=== PATIENT | male | born 1935 | race Caucasian/White ===

== ENCOUNTER 2018-03-11 10:52 | Emergency (ER) | payer MEDICARE, BC ==
--- NOTE | 2018-03-11 11:28 | UC ---
Abdominal Pain Male HPI - HPI Summary HPI Summary: 82 y/o male presents to the urgent care accompany by son c/o constipation for the past week. Pt reports he has Hx of constipation at times. He took 3 pills of Docusate on Thursday and 3 on Thursday. he developed a mild loose stool, but he feels he has a big large stool that doesn't allow to do a normal BM. Now he has rectal pain. Pain is 4/10. Pt has Hx of abdominal surgeries and bowel obstruction in the past. Rectal pain is 8/10. Pt denies fever, abdominal pain, SOB, chest pain, N/V. - History of Current Complaint Chief Complaint: UCGI Stated Complaint: CONSTIPATED Time Seen by Provider: 03/11/18 11:26 Hx Obtained From: Patient Onset/Duration: Gradual Onset, Lasting Weeks - 1 week, Still Present, Worse Since - today Timing: Intermittent Episodes Lasting: Severity Initially: Mild Severity Currently: Moderate Pain Intensity: 4 - rectal pain Pain Scale Used: 0-10 Numeric Location: Other - rectal pain Radiates: No Character: Colicy Aggravating Factor(s): Food Alleviating Factor(s): Rest Associated Signs And Symptoms: Positive: Constipation, Other - mild watery dirrahea at times - Risk Factors Cardiac Risk Factors: Negative - Allergies/Home Medications Allergies/Adverse Reactions: Allergies Allergy/AdvReac Type Severity Reaction Status Date / Time No Known Allergies Allergy Verified 03/11/18 11:14 Home Medications: Home Medications Levothyroxine TAB* [Synthroid TAB*] 1 tab PO DAILY 03/11/18 [History Confirmed 03/11/18] PMH/Surg Hx/FS Hx/Imm Hx Previously Healthy: Yes Cardiovascular History: Hypertension, Myocardial Infarction, Atrial Fibrillation - Surgical History Surgical History: Yes Surgery Procedure, Year, and Place: Hernia repair x 2 11/2012 [place] quadruple bypass. Bowel surgeries x 3. Cataract removal. Corneal implant. Multiple ear surgeries - Family History Known Family History: Positive: Cardiac Disease, Hypertension - Social History Occupation: Retired Lives: With Family Alcohol Use: Occasionally Substance Use Type: None Smoking Status (MU): Never Smoked Tobacco - Immunization History Most Recent Tetanus Shot: Over 10 years ago Review of Systems Constitutional: Negative Skin: Negative Eyes: Negative ENT: Negative Respiratory: Negative Cardiovascular: Negative Gastrointestinal: Diarrhea - watery at times bur mainly constipation, Other - rectal pain Genitourinary: Negative Motor: Negative Neurovascular: Negative Musculoskeletal: Negative Neurological: Negative Psychological: Negative Is Patient Immunocompromised?: No All Other Systems Reviewed And Are Negative: Yes Physical Exam - Summary Physical Exam Summary: Vital Signs Reviewed: Yes General:Patient is a well developed and nourished obese male who is sitting comfortable in the examining table. Patient is not in any acute respiratory distress. Eyes: Positive: Conjunctiva Clear - PERRLA, EOMI, fundi grossly normal ENT: Positive: Normal ENT inspection, Hearing grossly normal, Pharynx normal, TMs normal Neck: Positive: Supple, Nontender, No Lymphadenopathy Respiratory: Positive: Chest non-tender, Lungs clear, Normal breath sounds, No respiratory distress Cardiovascular: Positive: RRR,S1 and S2 present, No Murmur, Pulses Normal, Brisk Capillary Refill Abdomen Description: Positive: Nontender, Abd: obese with no distention. No surface trauma, multiple abdominal scars,. Decrease bowel sounds in LLQ and normal bowel sound in the rest of abdomen. No tenderness, guarding, rigidity to palpation. No masses palpated, no pulsation in epigastric area. No organomegaly. Negative [place] signs. No periumbilical tenderness. No rebound in the lower quadrants. NT over [place] point. Good femoral pulses bilaterally. No hernia noted. No CVAT bilaterally Musculoskeletal: Positive: Strength Intact, ROM Intact, No Edema,FROM in all major joints, no edema, no cyanosis or clubbing. Neuro: Alert and oriented x 3. No acute neurological deficits. Speech is normal. Psychological: WNL Skin: Dry and warm Triage Information Reviewed: Yes Vital Signs: Initial Vital Signs Temp 100.0 F 03/11/18 11:11 Pulse 77 03/11/18 11:11 Resp 16 03/11/18 11:11 BP 118/58 03/11/18 11:11 Pulse Ox 99 03/11/18 11:11 Abd Pain Male Course/Dx - Course Course Of Treatment: 82 y/o male presents to the urgent care accompany by son c/ o constipation for the past week. Pt reports he has Hx of constipation at times. He took 3 pills of Docusate on Thursday and 3 on Thursday. he developed a mild loose stool, but he feels he has a big large stool that doesn't allow to do a normal BM. Now he has rectal pain. Pain is 4/10. Pt has Hx of abdominal surgeries and bowel obstruction in the past. Rectal pain is 8/10. Pt denies fever, abdominal pain, SOB, chest pain, N/V. Hx obtained. PE: Pt w/ decrease bowel sounds in the LLQ on examination. Pt's symptoms discussed w/ DR Rhoades and she recommended Abdominal and pelvic X-ray to r/o obstruction. Abd/Pelvic X-ray , Impression: Non obstructive gas pattern and large amount of stool w/in the distal colon. Pt has a small hard and watery BM while in X-ray. Pt Rx Magnesium Citrate PO and Docusate to alleviates symptoms. While Pt was being D/ C Pt was able to perform a good BM. Pt advised to f/u w/ his PCP for further evalaution and treatment of his constipation. D/C instructions explained. Pt and son understood and agreed w/ plan of care. Pt left the clinic hemodynamically stable, A&OX3. - Differential Dx/Clinical Impression Differential Diagnosis/HQI/PQRI: Bowel Obstruction, Constipation, Diverticulitis Provider Diagnoses: 1- Acute Constipation - Physician Notification/Consults Discussed Patient Care With: Mook Rhoades - DR Rhoades agreed w/ Pt's plan of care Discharge - Sign-Out/Discharge Documenting (check all that apply): Discharge/Admit/Transfer - D/C home - Discharge Plan Condition: Stable Disposition: HOME Prescriptions: Docusate CAP* [Colace Cap*] 100 mg PO BID #28 cap Magnesium CITRATE* [Citrate of Magnesia*] 300 ml PO SEE INSTRUCTIONS PRN #1 btl PRN Reason: Constipation Patient Education Materials: Constipation (ED) Referrals: Diogo Main MD [Primary Care Provider] - 2 Days Additional Instructions: 1- Please take Magnesiums citrate as directed full bottle. 2- Take Colace as directed to normalize bowel moments. Increase fluid intake, eat vegetable and fiber 3- If you do not get a bowel movement in 1 day and develop severe rectal pain please go immediately to the ER for further treatment. - Billing Disposition and Condition Condition: STABLE Disposition: HOME
[2018-03-11 12:09] VITALS: BP 118/58
--- NOTE | 2018-03-11 12:35 | RAD ---
HISTORY: Constipation rule out obstruction COMPARISONS: None VIEWS: Frontal supine and upright views of the abdomen. FINDINGS: BOWEL: There is a nonobstructive bowel gas pattern. There is large amount of stool within the distal colon. CALCULI: There are no abnormal calculi. BONES AND SOFT TISSUES: Degenerative changes are noted. The patient is status post median sternotomy. OTHER FINDINGS: The lung bases are clear. There is no subphrenic gas. IMPRESSION: NONOBSTRUCTIVE BOWEL GAS PATTERN. LARGE AMOUNT OF STOOL WITHIN THE DISTAL COLON.
== END 2018-03-11 13:32 | disposition home or self-care (01) ==
LOC: UCEAST 10:52
DX: K59.00 Constipation, unspecified (principal); I10 Essential (primary) hypertension; I25.2 Old myocardial infarction; Z98.890 Other specified postprocedural states
CPT/HCPCS: 74019; 99212; G0463

== ENCOUNTER 2019-11-16 13:20 | Emergency (ER) | payer MEDICARE, BC ==
--- OUTSIDE RECORDS SUMMARY | 2019-11-16 13:30 | XMS REPORT | Continuity of Care Document ---
:1935 External Reference #:[id number] Author Name Danica Dhaliwal O.D. Address [address] [place] [address] Care Team Providers Name Role Phone Diogo Main M.D. - Family Medicine Care Team Information Gyroscopic Instrument Tester Baron Cortes M.D. 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 Onset: 11/18/2016 Nuclear senile cataract Bahman Amaya M.D. Onset: 11/18/2016 Central retinal vein occlusion Bahman Amaya M.D. Onset: 11/18/2016 Presence of intraocular lens Bahman Amaya M.D. Onset: 11/18/2016 Myopia Danica Dhaliwal O.D. Onset: 09/27/2019 Social History Type Date Description Comments Sex Unknown ETOH Use Occasionally consumes beer Tobacco Use Start: Unknown End: Unknown Patient is a former smoker Recreational Drug Use Denies Drug Use Smoking Status Reviewed: 09/27/19 Patient is a former smoker Allergies, Adverse Reactions, Alerts Description No Known Drug Allergies Medications Active Medications SIG Qnty Indications Ordering Provider Date Amiodarone HCL Take 1/2 Tablet By Unknown 200mg Mouth Every Day Tablets Levothyroxine Sodium Take 1 Tablet By Unknown Mouth Daily Before 75mcg Tablets Breakfast Metoprolol Tartrate Take 1 Tablet By Unknown 50mg Mouth Twice A Day Tablets Minoxidil Take 1 Tablet By Unknown 10mg Tablets Mouth Twice A Day Torsemide Take 2 Tabs By Unknown 100mg Tablets Mouth Daily. Klor-Con M20 Take 3 Tablets By Unknown 20Meq Mouth Daily Tablets ER Folic Acid Unknown 1mg Tablets Aspir-81 daily Unknown 81mg Tablets DR Atorvastatin Calcium Unknown 40mg Tablets Centrum Silver Unknown Tablets Artificial Tears as needed Unknown 0.1-0.3% Solution Immunizations Description No Information Available Vital Signs Description No Information Available Results Description No Information Available Procedures Date Code Description Status 09/12/2019 35732 Visual Field Exam Extended Completed 09/05/2019 19582 Determination Of Refractive State Completed 09/05/2019 96198 Est Patient Comprehensive Exam Completed Medical Devices Description No Information Available Encounters Description No Information Available Assessments Date Code Description Provider 09/27/2019 H52.11 Myopia, right eye Danica Dhaliwal O.D. 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 09/12/2019 H53.40 Unspecified visual field defects Bahman Amaya M.D. 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 09/05/2019 Z96.1 Presence of intraocular lens Bahman Amaya M.D. 09/05/2019 H25.12 Age-related nuclear cataract, left eye Bahman Amaya M.D. 09/05/2019 H34.8122 Central retinal vein occlusion, left eye, Bahman Amaya M.D. stable Plan of Treatment 09/27/2019 - Danica Dhaliwal O.D.H52.11 Myopia, right eyeComments:Smoking can increase the risk of developing or worsening any eye related disease, as well as affect your overall health. If you are a smoker, we strongly recommend that you quit.If you are not a smoker, we strongly recommend that you do not start. You have Myopia, or near sightedness. I have given you a prescription for glasses.S04.51xS Injury of facial nerve, right side, sequelaFollow up:as scheduled Functional Status Description No Information Available Mental Status Description No Information Available Referrals Description No Information Available
[2019-11-16 14:52] VITALS: BP 134/55
--- NOTE | 2019-11-16 16:36 | UC ---
Back Pain HPI - HPI Summary HPI Summary: 3 WEEKS OF INTERMITTENT LOW BACK PAIN AND PAIN SHOOTING DOWN THE BACK OF HIS LEFT LEG. WORSE WHEN HE WALKS OR SITS FOR PROLONGED PERIOD OF TIME. NO CHEST PAIN, SHORTNESS OF BREATH, NAUSEA. DENIES ANY FALLS OR RECENT INJURY. NO SADDLE ANESTHESIA. NO NUMBNESS/TINGLING. NO LOSS OF BOWEL OR BLADDER CONTROL. - History of Current Complaint Chief Complaint: UCLowerExtremity Stated Complaint: LEFT SIDE & LEG PAIN Time Seen by Provider: 11/16/19 15:38 Hx Obtained From: Patient Onset/Duration: Gradual Onset, Lasting Weeks, Still Present Severity Initially: Moderate Severity Currently: Moderate Pain Intensity: 10 Pain Scale Used: 0-10 Numeric Back Pain: Is Discrete @ - LEFT LEG Alleviating Factor(s): Rest, Position - Allergies/Home Medications Allergies/Adverse Reactions: Allergies Allergy/AdvReac Type Severity Reaction Status Date / Time No Known Allergies Allergy Verified 11/16/19 14:51 Home Medications: Home Medications Acetaminophen [8 Hour Acetaminophen] 1 tab PO Q4HR PRN 11/16/19 [History Confirmed 11/16/19] Aspirin 1 tab PO DAILY 11/16/19 [History Confirmed 11/16/19] Potassium Gluconate [Potassium] 1 tab PO DAILY 11/16/19 [History Confirmed 11/16] Spironolactone 1 tab PO DAILY 11/16/19 [History Confirmed 11/16/19] PMH/Surg Hx/FS Hx/Imm Hx Endocrine History: Hypothyroidism, Dyslipidemia Cardiovascular History: Cardiac Disease, Hypertension - Surgical History Surgical History: Yes Surgery Procedure, Year, and Place: Hernia repair x 2 11/2012 [place] quadruple bypass. Bowel surgeries x 3. Cataract removal. Corneal implant. Multiple ear surgeries - Family History Known Family History: Positive: Cardiac Disease, Hypertension - Social History Alcohol Use: None Substance Use Type: None Smoking Status (MU): Never Smoked Tobacco - Immunization History Most Recent Tetanus Shot: Over 10 years ago Review of Systems All Other Systems Reviewed And Are Negative: Yes Constitutional: Positive: Negative Skin: Positive: Negative Respiratory: Positive: Negative Cardiovascular: Positive: Negative Gastrointestinal: Positive: Negative Neurological: Positive: Paresthesia Physical Exam Triage Information Reviewed: Yes Appearance: No Pain Distress, Well-Nourished, Other: - DEBILITATED Vital Signs: Initial Vital Signs Temp 99.4 F 11/16/19 14:38 Pulse 63 11/16/19 14:38 Resp 18 11/16/19 14:38 BP 134/55 11/16/19 14:38 Pulse Ox 96 11/16/19 14:38 Vital Signs Reviewed: Yes Eyes: Negative: Discharge ENT: Positive: Hearing grossly normal Neck: Positive: Supple Respiratory: Positive: No respiratory distress, No accessory muscle use Cardiovascular: Positive: Pulses Normal Musculoskeletal: Positive: No Edema Neurological: Positive: Alert, Other: - POSITIVE LEFT STRAIGHT LEG RAISE Psychological: Positive: Age Appropriate Behavior Skin: Negative: Rashes Back Pain Course/Dx - Course Course Of Treatment: PRESENTATION CONSISTENT WITH LEFT-SIDED SCIATICA. ENCOURAGED NOT TO SIT ON ANY HARD SURFACES. WILL TRY SHORT BURST OF PREDNISONE. TYLENOL NEEDED FOR DISCOMFORT. PATIENT STATES HE CANNOT TOLERATE NSAIDS DUE TO HIS BLOOD PRESSURE. PHYSICAL THERAPY REFERRAL PROVIDED FOR PATIENT TO USE IF DESIRED. - Differential Dx/Diagnosis Provider Diagnosis: Left sciatic nerve pain Discharge ED - Sign-Out/Discharge Documenting (check all that apply): Patient Departure All imaging exams completed and their final reports reviewed: No Studies - Discharge Plan Condition: Stable Disposition: HOME Prescriptions: predniSONE 20 mg TAB [Deltasone 20 MG TAB*] 40 mg PO DAILY #10 tab Patient Education Materials: Sciatica (ED) Referrals: Diogo Main MD [Primary Care Provider] - 1 Week Additional Instructions: I SUSPECT YOU HAVE IRRITATION OF YOUR SCIATIC NERVE. WILL TRY A SHORT BURST OF PREDNISONE TO HELP WITH THE INFLAMMATION. TAKE TYLENOL EVERY 6 HOURS FOR DISCOMFORT. REST, STRETCH, USE HEAT IF HELPFUL. PHYSICAL THERAPY REFERRAL PROVIDED. GO TO THE ER WITHOUT FAIL IF YOU DEVELOP WORSENING PAIN, NUMBNESS/ TINGLING OR ANY OTHER CONCERNING SYMPTOMS. - Billing Disposition and Condition Condition: STABLE Disposition: Home
== END 2019-11-16 16:34 | disposition home or self-care (01) ==
LOC: UCEAST 13:20
DX: M54.32 Sciatica, left side (principal); I10 Essential (primary) hypertension; Z79.82 Long term (current) use of aspirin; Z79.899 Other long term (current) drug therapy
CPT/HCPCS: 99211; G0463

== ENCOUNTER 2020-12-23 15:49 | Inpatient (IN) ==
[2020-12-23 17:06] LABS: ABS Eosinophils 0.1 10^3/ul (0-0.6); ABS Lymphocytes 0.5 10^3/ul (1.0-4.8); Eosinophil % 1.3 %; Hematocrit 39 % (42-52); Hemoglobin 12.7 g/dL (14.0-18.0); Lymphocyte % 6.8 %; Mean Corpuscular HGB Conc 33 g/dL (31-36); Mean Corpuscular Hemoglobin 29 pg (27-31); Mean Corpuscular Volume 87 fL (80-94); Mean Platelet Volume 7.9 fL (7.4-10.4); Nucleated Red Blood Cells % 0.1; Platelet Count 244 10^3/uL (150-450); Red Blood Count 4.45 10^6 /uL (4.18-5.48); Red Cell Distribution Width 18 % (10-15); White Blood Count 7.6 10^3/uL (3.5-10.8)
[2020-12-23 17:12] LABS: Urine Appearance Clear; Urine Bilirubin Negative (Negative); Urine Blood Negative (Negative); Urine Color Straw; Urine Glucose Negative (Negative); Urine Ketones Negative (Negative); Urine Nitrite Negative (Negative); Urine Protein Negative (Negative); Urine Specific Gravity 1.005 (1.010-1.030); Urine Urobilinogen Negative (Negative)
[2020-12-23 17:16] LABS: Activated Partial Thrombo Time 37.5 seconds (26.0-38.0); INR 1.29 (0.82-1.09)
[2020-12-23 17:23] LABS: ALT 13 U/L (7-52); AST 12 U/L (13-39); Albumin 4.1 g/dL (3.2-5.2); Albumin/Globulin Ratio 1.4 (1-3); Alkaline Phosphatase 96 U/L (34-104); Anion Gap 8 mmol/L (2-11); BUN/Creatinine Ratio 10.5 (8-20); Blood Urea Nitrogen 18 mg/dL (6-24); C Reactive Protein 33.26 mg/L (<8.01); CO2 Carbon Dioxide 30 mmol/L (22-32); Calcium 9.1 mg/dL (8.6-10.3); Chloride 102 mmol/L (101-111); Creatine Kinase 40 U/L (10-223); EGFR African American 46.3 (>60); EGFR Non-African American 38.2 (>60); Glucose 84 mg/dL (70-100); Potassium 4.7 mmol/L (3.5-5.0); Sodium 140 mmol/L (135-145); Total Protein 7.1 g/dL (6.4-8.9)
[2020-12-23 17:27] LABS: CKMB ng/mL 1.4 ng/mL (0.6-6.3)
[2020-12-23 17:28] LABS: Troponin I 0.03 ng/mL (<0.03)
[2020-12-23] MEDS ORDERED: Ondansetron 4 mg VIAL 2 MG/ML 2 ml VIAL IV PRN (20:10)
[2020-12-23] MEDS ORDERED: Bumetanide IV 0.25 MG/ML 4 ml VIAL (1 mg) SLOW PUSH ONE (20:14)
[2020-12-23] MEDS ORDERED: Albuterol/Ipratropium RESP(NF) MDI (Combivent Respimat) INH PRN (20:16)
[2020-12-23 20:58] LABS: Magnesium 2.3 mg/dL (1.9-2.7)
[2020-12-23 21:06] LABS: Troponin I 0.04 ng/mL (<0.03)
[2020-12-23] MEDS: Potassium Chlor 20 meq TAB.ER PO SCH (23:20)
[2020-12-23 23:56] LABS: Troponin I 0.04 ng/mL (<0.03)
[2020-12-24] MEDS: Albuterol HFA INHALER 8 gm MDI INH SCH ×6 (00:21→19:24)
[2020-12-24] MEDS: Carboxymethylcellulose/Glyceri 10 ML OPHTH.GEL lubricant eye gel BOTH EYES SCH ×3 (00:43→21:34)
[2020-12-24 08:37] LABS: ABS Eosinophils 0.1 10^3/ul (0-0.6); ABS Lymphocytes 0.5 10^3/ul (1.0-4.8); ABS Monocytes 0.8 10^3/ul (0-0.8); Eosinophil % 1.3 %; Hematocrit 35 % (42-52); Hemoglobin 11.7 g/dL (14.0-18.0); Lymphocyte % 7.6 %; Mean Corpuscular HGB Conc 33 g/dL (31-36); Mean Corpuscular Hemoglobin 29 pg (27-31); Mean Corpuscular Volume 87 fL (80-94); Mean Platelet Volume 7.8 fL (7.4-10.4); Platelet Count 220 10^3/uL (150-450); Red Blood Count 4.04 10^6 /uL (4.18-5.48); Red Cell Distribution Width 18 % (10-15); White Blood Count 6.4 10^3/uL (3.5-10.8)
[2020-12-24] MEDS: Multivitamins/Minerals TAB PO SCH (08:47)
[2020-12-24] MEDS: Potassium Chlor 20 meq TAB.ER PO SCH ×2 (08:47→21:32)
[2020-12-24 08:52] LABS: Albumin 3.8 g/dL (3.2-5.2); Albumin/Globulin Ratio 1.5 (1-3); BUN/Creatinine Ratio 12.2 (8-20); Calcium 8.6 mg/dL (8.6-10.3); EGFR African American 43.6 (>60); Globulin 2.6 g/dL (2-4); Indirect Bilirubin 1.3 mg/dL (0.3-1.0); Potassium 4.7 mmol/L (3.5-5.0); Total Bilirubin 1.7 mg/dL (0.2-1.0); Total Protein 6.4 g/dL (6.4-8.9)
[2020-12-24] MEDS ORDERED: Influenza VAC *QUAD* 2020-21* 0.5 ML SYRINGE IM ONE (09:00)
[2020-12-24] MEDS: CMC:OMEGA-3 FATTY ACID 1000 mg(NF) PO SCH (09:03)
[2020-12-24] MEDS ORDERED: Bumetanide IV 0.25 MG/ML 4 ml VIAL (1 mg) SLOW PUSH ONE ×3 (10:00→16:00)
[2020-12-24 10:20] LABS: Influenza A Molecular Negative (Negative); Influenza B Molecular Negative (Negative)
[2020-12-24 20:17] LABS: Magnesium 2.1 mg/dL (1.9-2.7)
[2020-12-25] MEDS: Albuterol HFA INHALER 8 gm MDI INH SCH ×7 (02:53→22:39)
[2020-12-25 05:57] LABS: ABS Eosinophils 0.1 10^3/ul (0-0.6); ABS Lymphocytes 0.5 10^3/ul (1.0-4.8); ABS Monocytes 0.7 10^3/ul (0-0.8); ABS Neutrophils 4.9 10^3/ul (1.5-7.7); Eosinophil % 1.4 %; Hematocrit 36 % (42-52); Lymphocyte % 7.7 %; Mean Corpuscular HGB Conc 33 g/dL (31-36); Mean Corpuscular Hemoglobin 29 pg (27-31); Mean Corpuscular Volume 86 fL (80-94); Mean Platelet Volume 7.8 fL (7.4-10.4); Nucleated Red Blood Cells % 0.1; Platelet Count 205 10^3/uL (150-450); Red Blood Count 4.18 10^6 /uL (4.18-5.48); Red Cell Distribution Width 18 % (10-15); White Blood Count 6.1 10^3/uL (3.5-10.8)
[2020-12-25 06:20] LABS: BUN/Creatinine Ratio 15.6 (8-20); Calcium 8.6 mg/dL (8.6-10.3); EGFR African American 40.5 (>60); EGFR Non-African American 33.5 (>60); Potassium 4.8 mmol/L (3.5-5.0)
[2020-12-25] MEDS ORDERED: Bumetanide IV 0.25 MG/ML 4 ml VIAL (1 mg) SLOW PUSH PRN (08:35)
[2020-12-25] MEDS: Potassium Chlor 20 meq TAB.ER PO SCH ×2 (08:54→20:54)
[2020-12-25] MEDS: Multivitamins/Minerals TAB PO SCH (08:55)
[2020-12-25] MEDS: Carboxymethylcellulose/Glyceri 10 ML OPHTH.GEL lubricant eye gel BOTH EYES SCH ×2 (09:00→20:55)
[2020-12-25] MEDS: CMC:OMEGA-3 FATTY ACID 1000 mg(NF) PO SCH (09:00)
[2020-12-25] MEDS ORDERED: Bumetanide IV 0.25 MG/ML 4 ml VIAL (1 mg) SLOW PUSH ONE (15:32)
[2020-12-25] MEDS: Bumetanide IV 0.25 MG/ML 4 ml VIAL (1 mg) SLOW PUSH ONE ×2 (16:16→16:26)
[2020-12-25] MEDS ORDERED: Dextran 70/Hypromellose Tears Eye Drops 15 ml BTL (for Artificials Tears) BOTH EYES PRN (16:18)
[2020-12-26] MEDS: Albuterol HFA INHALER 8 gm MDI INH SCH ×6 (03:04→23:18)
[2020-12-26 05:18] LABS: BUN/Creatinine Ratio 17.5 (8-20); Calcium 8.5 mg/dL (8.6-10.3); EGFR Non-African American 33.1 (>60); Magnesium 2.1 mg/dL (1.9-2.7); Potassium 4.9 mmol/L (3.5-5.0)
[2020-12-26] MEDS: Multivitamins/Minerals TAB PO SCH (08:39)
[2020-12-26] MEDS: CMC:OMEGA-3 FATTY ACID 1000 mg(NF) PO SCH (08:40)
[2020-12-26] MEDS: Potassium Chlor 20 meq TAB.ER PO SCH ×2 (08:40→20:34)
[2020-12-26] MEDS: Carboxymethylcellulose/Glyceri 10 ML OPHTH.GEL lubricant eye gel BOTH EYES SCH ×2 (08:46→20:34)
[2020-12-26] MEDS ORDERED: Bumetanide IV 0.25 MG/ML 4 ml VIAL (1 mg) SLOW PUSH ONE (09:00)
[2020-12-26 09:56] LABS: TSH Ultra Thyroid Stim Horm 1.95 mcIU/mL (0.34-5.60)
[2020-12-26 09:58] LABS: Free T4 1.41 ng/dL (0.61-1.12)
[2020-12-26] MEDS ORDERED: Bumetanide IV 0.25 MG/ML 10 ml VIAL (2.5 mg) IV ONE (12:00)
[2020-12-26 18:05] LABS: BUN/Creatinine Ratio 19.5 (8-20); Calcium 8.7 mg/dL (8.6-10.3); EGFR African American 42.3 (>60); EGFR Non-African American 34.9 (>60); Potassium 4.5 mmol/L (3.5-5.0)
[2020-12-27] MEDS: Albuterol HFA INHALER 8 gm MDI INH SCH ×6 (03:02→23:14)
[2020-12-27 06:09] LABS: ABS Eosinophils 0.2 10^3/ul (0-0.6); ABS Lymphocytes 0.5 10^3/ul (1.0-4.8); ABS Monocytes 0.7 10^3/ul (0-0.8); ABS Neutrophils 4.7 10^3/ul (1.5-7.7); Hematocrit 35 % (42-52); Hemoglobin 11.7 g/dL (14.0-18.0); Lymphocyte % 7.5 %; Mean Corpuscular HGB Conc 34 g/dL (31-36); Mean Corpuscular Hemoglobin 29 pg (27-31); Mean Corpuscular Volume 85 fL (80-94); Mean Platelet Volume 7.9 fL (7.4-10.4); Nucleated Red Blood Cells % 0.1; Platelet Count 213 10^3/uL (150-450); Red Blood Count 4.08 10^6 /uL (4.18-5.48); Red Cell Distribution Width 17 % (10-15)
[2020-12-27 06:29] LABS: BUN/Creatinine Ratio 19.3 (8-20); Calcium 8.5 mg/dL (8.6-10.3); EGFR African American 40.5 (>60); EGFR Non-African American 33.5 (>60); Magnesium 2.2 mg/dL (1.9-2.7); Potassium 4.5 mmol/L (3.5-5.0)
[2020-12-27] MEDS: Potassium Chlor 20 meq TAB.ER PO SCH ×2 (09:19→20:10)
[2020-12-27] MEDS: Multivitamins/Minerals TAB PO SCH (09:19)
[2020-12-27] MEDS: Carboxymethylcellulose/Glyceri 10 ML OPHTH.GEL lubricant eye gel BOTH EYES SCH ×2 (09:20→20:09)
[2020-12-27] MEDS: CMC:OMEGA-3 FATTY ACID 1000 mg(NF) PO SCH (09:20)
[2020-12-28] MEDS: Albuterol HFA INHALER 8 gm MDI INH SCH ×2 (03:22→07:36)
[2020-12-28] MEDS ORDERED: Albuterol HFA INHALER 8 gm MDI INH PRN (07:42)
[2020-12-28 08:32] LABS: BUN/Creatinine Ratio 22.9 (8-20); Calcium 9.2 mg/dL (8.6-10.3); EGFR African American 40.5 (>60); EGFR Non-African American 33.5 (>60); Potassium 4.4 mmol/L (3.5-5.0)
[2020-12-28] MEDS: Potassium Chlor 20 meq TAB.ER PO SCH (09:03)
[2020-12-28] MEDS: Multivitamins/Minerals TAB PO SCH (09:03)
[2020-12-28] MEDS: Carboxymethylcellulose/Glyceri 10 ML OPHTH.GEL lubricant eye gel BOTH EYES SCH (09:04)
[2020-12-28] MEDS: CMC:OMEGA-3 FATTY ACID 1000 mg(NF) PO SCH (09:09)
[2020-12-28 16:02] VITALS: BP 123/52
== END 2020-12-28 16:40 | disposition home or self-care (01) | DRG 291 ==
LOC: ED 15:49 → MED 20:11
PROVIDERS: ADMIT Student in an Organized Health Care Education/Training Program; ATTEND Internal Medicine

== ENCOUNTER 2021-03-05 10:44 | Inpatient (IN) ==
[2021-03-05 11:15] LABS: Hematocrit 28 % (42-52); Mean Corpuscular HGB Conc 33 g/dL (31-36); Mean Corpuscular Hemoglobin 29 pg (27-31); Mean Corpuscular Volume 88 fL (80-94); Mean Platelet Volume 8.2 fL (7.4-10.4); Platelet Count 203 10^3/uL (150-450); Red Blood Count 3.16 10^6 /uL (4.18-5.48); Red Cell Distribution Width 20 % (10-15); White Blood Count 6.5 10^3/uL (3.5-10.8)
[2021-03-05 11:22] LABS: INR 1.21 (0.82-1.09)
[2021-03-05 11:32] LABS: Troponin I 0.08 ng/mL (<0.03)
[2021-03-05] MEDS ORDERED: Furosemide 40 mg/4 ml IV VIAL IV ONE ×2 (11:33→17:08)
[2021-03-05 11:43] LABS: ALT 13 U/L (7-52); AST 16 U/L (13-39); Albumin 3.5 g/dL (3.2-5.2); Albumin/Globulin Ratio 1.3 (1-3); Alkaline Phosphatase 92 U/L (34-104); Anion Gap 3 mmol/L (2-11); Blood Urea Nitrogen 32 mg/dL (6-24); C Reactive Protein 18.34 mg/L (<8.01); CO2 Carbon Dioxide 38 mmol/L (22-32); Chloride 96 mmol/L (101-111); EGFR African American 42.8 (>60); EGFR Non-African American 35.4 (>60); Globulin 2.6 g/dL (2-4); Glucose 143 mg/dL (70-100); Magnesium 2.4 mg/dL (1.9-2.7); Potassium 3.2 mmol/L (3.5-5.0); Sodium 137 mmol/L (135-145); Total Protein 6.1 g/dL (6.4-8.9)
[2021-03-05 11:58] LABS: TSH Ultra Thyroid Stim Horm 4.99 mcIU/mL (0.34-5.60)
[2021-03-05] MEDS ORDERED: KCL 20 MEQ/100 ML IVPREMIX 20 MEQ/100 ML BAG IV ONE (12:19)
[2021-03-05 12:41] LABS: ABS Eosinophils 0.1 10^3/ul (0-0.6); ABS Lymphocytes 0.4 10^3/ul (1.0-4.8); ABS Monocytes 0.8 10^3/ul (0-0.8); ABS Neutrophils 5.1 10^3/ul (1.5-7.7); Eosinophil % 1.7 %; Lymphocyte % 6.8 %; Nucleated Red Blood Cells % 0.3
[2021-03-05 13:28] LABS: Phosphorus 3.5 mg/dL (2.5-5.0)
[2021-03-05] MEDS: KCL 20 MEQ/100 ML IVPREMIX 20 MEQ/100 ML BAG IV SCH ×2 (17:32→22:32)
[2021-03-05 17:40] LABS: % Iron Saturation 8 % (15-55); Iron 23 ug/dL (50-212); Total Iron Binding Capacity 305 mcg/dL (250-450); Transferrin 218 mg/dL (203-362); Unsaturated Iron Binding < 290 ug/dL
[2021-03-05 21:06] LABS: Urine Appearance Clear; Urine Bilirubin Negative (Negative); Urine Blood Negative (Negative); Urine Color Straw; Urine Glucose Negative (Negative); Urine Ketones Negative (Negative); Urine Nitrite Negative (Negative); Urine Protein Negative (Negative); Urine Specific Gravity 1.006 (1.002-1.030); Urine Urobilinogen Negative (Negative)
[2021-03-06 06:10] LABS: ABS Eosinophils 0.1 10^3/ul (0-0.6); ABS Lymphocytes 0.5 10^3/ul (1.0-4.8); ABS Monocytes 0.5 10^3/ul (0-0.8); ABS Neutrophils 4.1 10^3/ul (1.5-7.7); Hematocrit 29 % (42-52); Hemoglobin 9.2 g/dL (14.0-18.0); Lymphocyte % 10.3 %; Mean Corpuscular HGB Conc 32 g/dL (31-36); Mean Corpuscular Hemoglobin 28 pg (27-31); Mean Corpuscular Volume 87 fL (80-94); Nucleated Red Blood Cells % 0.2; Platelet Count 211 10^3/uL (150-450); Red Blood Count 3.28 10^6 /uL (4.18-5.48); Red Cell Distribution Width 20 % (10-15); White Blood Count 5.3 10^3/uL (3.5-10.8)
[2021-03-06 06:26] LABS: ALT 12 U/L (7-52); AST 13 U/L (13-39); Albumin 3.6 g/dL (3.2-5.2); Albumin/Globulin Ratio 1.4 (1-3); Alkaline Phosphatase 94 U/L (34-104); Anion Gap 1 mmol/L (2-11); Blood Urea Nitrogen 30 mg/dL (6-24); CO2 Carbon Dioxide 39 mmol/L (22-32); Calcium 8.3 mg/dL (8.6-10.3); Chloride 98 mmol/L (101-111); EGFR African American 47.5 (>60); EGFR Non-African American 39.3 (>60); Globulin 2.6 g/dL (2-4); Glucose 98 mg/dL (70-100); Magnesium 2.3 mg/dL (1.9-2.7); Phosphorus 4.2 mg/dL (2.5-5.0); Potassium 3.4 mmol/L (3.5-5.0); Sodium 138 mmol/L (135-145); Total Protein 6.2 g/dL (6.4-8.9)
[2021-03-06] MEDS ORDERED: KCL 20 MEQ/100 ML IVPREMIX 20 MEQ/100 ML BAG IV ONE ×2 (06:35→07:57)
[2021-03-06 07:13] LABS: Influenza A Molecular Negative (Negative); Influenza B Molecular Negative (Negative)
[2021-03-06] MEDS ORDERED: Furosemide 40 mg/4 ml IV VIAL IV ONE (09:02)
[2021-03-06] MEDS ORDERED: Dextran 70/Hypromellose Tears Eye Drops 15 ml BTL (for Artificials Tears) BOTH EYES PRN (09:27)
[2021-03-06] MEDS ORDERED: Tetracaine 0.5% OPTH.SOL 4 ML BTL BOTH EYES SCH (09:30)
[2021-03-06] MEDS: Multivitamins/Minerals TAB PO SCH (10:10)
[2021-03-06] MEDS: Ciprofloxacin 0.3% OPTH.SOL BTL BOTH EYES SCH ×3 (11:55→20:57)
[2021-03-06 16:00] LABS: Troponin I 0.07 ng/mL (<0.03)
[2021-03-06] MEDS: Bumetanide IV 0.25 MG/ML 4 ml VIAL (1 mg) SLOW PUSH SCH (20:58)
[2021-03-07 04:50] LABS: Hematocrit 27 % (42-52); Hemoglobin 8.9 g/dL (14.0-18.0); Mean Corpuscular HGB Conc 32 g/dL (31-36); Mean Corpuscular Hemoglobin 28 pg (27-31); Mean Corpuscular Volume 88 fL (80-94); Mean Platelet Volume 8.5 fL (7.4-10.4); Platelet Count 206 10^3/uL (150-450); Red Blood Count 3.13 10^6 /uL (4.18-5.48); Red Cell Distribution Width 20 % (10-15); White Blood Count 6.4 10^3/uL (3.5-10.8)
[2021-03-07 05:12] LABS: Calcium 8.3 mg/dL (8.6-10.3); EGFR African American 52.2 (>60); EGFR Non-African American 43.1 (>60); Magnesium 2.2 mg/dL (1.9-2.7); Phosphorus 3.8 mg/dL (2.5-5.0); Potassium 3.3 mmol/L (3.5-5.0)
[2021-03-07] MEDS ORDERED: Senna TAB 8.6 mg TAB PO PRN (08:00)
[2021-03-07] MEDS ORDERED: Bumetanide IV 0.25 MG/ML 4 ml VIAL (1 mg) SLOW PUSH SCH (09:00)
[2021-03-07] MEDS: Ciprofloxacin 0.3% OPTH.SOL BTL BOTH EYES SCH ×3 (09:30→20:29)
[2021-03-07] MEDS: Multivitamins/Minerals TAB PO SCH (09:31)
[2021-03-07] MEDS: KCL 20 MEQ/100 ML IVPREMIX 20 MEQ/100 ML BAG IV SCH ×2 (09:31→11:38)
[2021-03-07] MEDS ORDERED: Albuterol HFA INHALER 8 gm MDI INH PRN (12:25)
[2021-03-07] MEDS ORDERED: Albuterol/Ipratropium NEB.SOL (2.5/0.5 MG) 3 ML NEB.SOLN INH SCH (14:00)
[2021-03-07] MEDS ORDERED: Bumetanide IV 0.25 MG/ML 4 ml VIAL (1 mg) SLOW PUSH ONE (16:04)
[2021-03-07] MEDS: Albuterol/Ipratropium NEB.SOL (2.5/0.5 MG) 3 ML NEB.SOLN INH SCH (18:57)
[2021-03-07] MEDS: Potassium Chlor 20 meq TAB.ER PO SCH (20:29)
[2021-03-08 04:55] LABS: Hematocrit 28 % (42-52); Hemoglobin 9.2 g/dL (14.0-18.0); Mean Corpuscular HGB Conc 33 g/dL (31-36); Mean Corpuscular Hemoglobin 28 pg (27-31); Mean Corpuscular Volume 87 fL (80-94); Mean Platelet Volume 8.3 fL (7.4-10.4); Platelet Count 210 10^3/uL (150-450); Red Blood Count 3.25 10^6 /uL (4.18-5.48); Red Cell Distribution Width 19 % (10-15); White Blood Count 8.4 10^3/uL (3.5-10.8)
[2021-03-08 05:09] LABS: Calcium 8.4 mg/dL (8.6-10.3); EGFR African American 52.2 (>60); EGFR Non-African American 43.1 (>60); Magnesium 2.1 mg/dL (1.9-2.7); Phosphorus 3.7 mg/dL (2.5-5.0); Potassium 3.6 mmol/L (3.5-5.0)
[2021-03-08] MEDS: Albuterol/Ipratropium NEB.SOL (2.5/0.5 MG) 3 ML NEB.SOLN INH SCH ×2 (07:02→21:32)
[2021-03-08] MEDS ORDERED: KCL 20 MEQ/100 ML IVPREMIX 20 MEQ/100 ML BAG IV ONE ×2 (08:13→10:31)
[2021-03-08] MEDS ORDERED: Furosemide 40 mg/4 ml IV VIAL IV ONE (08:15)
[2021-03-08] MEDS: Potassium Chlor 20 meq TAB.ER PO SCH ×2 (10:45→21:59)
[2021-03-08] MEDS: Multivitamins/Minerals TAB PO SCH (10:47)
[2021-03-08] MEDS: Ciprofloxacin 0.3% OPTH.SOL BTL BOTH EYES SCH ×3 (10:47→21:59)
[2021-03-08] MEDS: Furosemide 100 mg/10 ml IV 100 MG in NS 0.9% 100 ml BAG 90 ML IV SCH ×2 (11:20→16:07)
[2021-03-08] MEDS: Bumetanide IV 0.25 MG/ML 4 ml VIAL (1 mg) SLOW PUSH SCH (15:56)
[2021-03-08] MEDS ORDERED: Furosemide 100 mg/10 ml IV 100 MG in NS 0.9% 100 ml BAG 90 ML IV SCH (18:30)
[2021-03-08 19:05] LABS: Blood Urea Nitrogen 33 mg/dL (6-24); CO2 Carbon Dioxide 36 mmol/L (22-32); Calcium 8.6 mg/dL (8.6-10.3); Chloride 96 mmol/L (101-111); EGFR African American 48.6 (>60); EGFR Non-African American 40.1 (>60); Glucose 137 mg/dL (70-100); Sodium 138 mmol/L (135-145)
[2021-03-08 19:17] LABS: Anion Gap 6 mmol/L (2-11)
[2021-03-09 06:43] LABS: ABS Lymphocytes 0.3 10^3/ul (1.0-4.8); ABS Monocytes 1.2 10^3/ul (0-0.8); ABS Neutrophils 9.2 10^3/ul (1.5-7.7); Eosinophil % 0.2 %; Hematocrit 29 % (42-52); Hemoglobin 9.5 g/dL (14.0-18.0); Lymphocyte % 2.5 %; Mean Corpuscular HGB Conc 33 g/dL (31-36); Mean Corpuscular Hemoglobin 29 pg (27-31); Mean Corpuscular Volume 86 fL (80-94); Platelet Count 215 10^3/uL (150-450); Red Blood Count 3.33 10^6 /uL (4.18-5.48); Red Cell Distribution Width 20 % (10-15); White Blood Count 10.7 10^3/uL (3.5-10.8)
[2021-03-09 06:59] LABS: Calcium 8.6 mg/dL (8.6-10.3); EGFR African American 39.8 (>60); EGFR Non-African American 32.9 (>60); Magnesium 2.3 mg/dL (1.9-2.7); Phosphorus 4.6 mg/dL (2.5-5.0); Potassium 4.5 mmol/L (3.5-5.0)
[2021-03-09] MEDS: Albuterol/Ipratropium NEB.SOL (2.5/0.5 MG) 3 ML NEB.SOLN INH SCH (07:16)
[2021-03-09] MEDS ORDERED: Albuterol/Ipratropium NEB.SOL (2.5/0.5 MG) 3 ML NEB.SOLN INH PRN (07:21)
[2021-03-09] MEDS: Potassium Chlor 20 meq TAB.ER PO SCH ×2 (08:53→21:03)
[2021-03-09] MEDS: Multivitamins/Minerals TAB PO SCH (08:53)
[2021-03-09] MEDS: Ciprofloxacin 0.3% OPTH.SOL BTL BOTH EYES SCH ×3 (08:54→21:04)
[2021-03-09 09:12] LABS: Urine Appearance Clear; Urine Bilirubin Negative (Negative); Urine Blood 1+ (Negative); Urine Color Yellow; Urine Glucose Negative (Negative); Urine Ketones Negative (Negative); Urine Nitrite Negative (Negative); Urine Protein Negative (Negative); Urine Specific Gravity 1.009 (1.002-1.030); Urine Urobilinogen Negative (Negative)
[2021-03-09 10:01] LABS: Urine Bacteria Absent (Absent); Urine Red Blood Cell 2+(6-10/hpf) (Absent); Urine White Blood Cell Trace(0-5/hpf) (Absent)
[2021-03-09] MEDS ORDERED: Furosemide 40 mg/4 ml IV VIAL IV ONE (10:05)
[2021-03-09 12:46] LABS: Calcium 8.3 mg/dL (8.6-10.3); EGFR African American 39.1 (>60); EGFR Non-African American 32.3 (>60); Magnesium 2.3 mg/dL (1.9-2.7); Phosphorus 4.6 mg/dL (2.5-5.0); Potassium 4.2 mmol/L (3.5-5.0)
[2021-03-09 21:06] LABS: Calcium 8.4 mg/dL (8.6-10.3); EGFR African American 40.5 (>60); EGFR Non-African American 33.5 (>60); Magnesium 2.3 mg/dL (1.9-2.7); Phosphorus 5.1 mg/dL (2.5-5.0); Potassium 4.3 mmol/L (3.5-5.0)
[2021-03-10 05:35] LABS: Calcium 8.4 mg/dL (8.6-10.3); EGFR African American 44.2 (>60); EGFR Non-African American 36.5 (>60); Magnesium 2.4 mg/dL (1.9-2.7); Phosphorus 4.3 mg/dL (2.5-5.0)
[2021-03-10] MEDS: Potassium Chlor 20 meq TAB.ER PO SCH ×2 (08:44→20:40)
[2021-03-10] MEDS: Multivitamins/Minerals TAB PO SCH (08:44)
[2021-03-10] MEDS: Ciprofloxacin 0.3% OPTH.SOL BTL BOTH EYES SCH ×2 (08:50→14:00)
[2021-03-10] MEDS ORDERED: Furosemide 40 mg/4 ml IV VIAL IV ONE (12:12)
[2021-03-11] MEDS: Ciprofloxacin 0.3% OPTH.SOL BTL BOTH EYES SCH (00:11)
[2021-03-11] MEDS: Potassium Chlor 20 meq TAB.ER PO SCH ×2 (09:06→20:31)
[2021-03-11] MEDS: Multivitamins/Minerals TAB PO SCH (09:06)
[2021-03-11] MEDS: Ciprofloxacin 0.3% OPTH.SOL BTL RIGHT EYE SCH ×3 (16:17→22:25)
[2021-03-12] MEDS: Ciprofloxacin 0.3% OPTH.SOL BTL RIGHT EYE SCH ×4 (02:00→13:30)
[2021-03-12 06:04] LABS: Hematocrit 29 % (42-52); Hemoglobin 9.3 g/dL (14.0-18.0); Mean Corpuscular HGB Conc 32 g/dL (31-36); Mean Corpuscular Hemoglobin 28 pg (27-31); Mean Corpuscular Volume 87 fL (80-94); Mean Platelet Volume 8.1 fL (7.4-10.4); Platelet Count 242 10^3/uL (150-450); Red Blood Count 3.35 10^6 /uL (4.18-5.48); Red Cell Distribution Width 20 % (10-15); White Blood Count 6.9 10^3/uL (3.5-10.8)
[2021-03-12 06:19] LABS: Calcium 8.6 mg/dL (8.6-10.3); EGFR African American 50.7 (>60); EGFR Non-African American 41.9 (>60); Potassium 3.5 mmol/L (3.5-5.0)
[2021-03-12] MEDS: Multivitamins/Minerals TAB PO SCH (08:40)
[2021-03-12] MEDS: Potassium Chlor 20 meq TAB.ER PO SCH ×2 (08:41→20:46)
[2021-03-13 07:13] LABS: Calcium 8.9 mg/dL (8.6-10.3); EGFR African American 50.7 (>60); EGFR Non-African American 41.9 (>60); Magnesium 2.1 mg/dL (1.9-2.7); Potassium 3.6 mmol/L (3.5-5.0)
[2021-03-13] MEDS: Potassium Chlor 20 meq TAB.ER PO SCH ×2 (08:25→20:34)
[2021-03-13] MEDS: Multivitamins/Minerals TAB PO SCH (08:25)
[2021-03-14 07:28] LABS: Calcium 8.7 mg/dL (8.6-10.3); EGFR African American 47.5 (>60); EGFR Non-African American 39.3 (>60); Magnesium 2.1 mg/dL (1.9-2.7); Potassium 3.8 mmol/L (3.5-5.0)
[2021-03-14] MEDS: Multivitamins/Minerals TAB PO SCH (09:45)
[2021-03-14] MEDS: Potassium Chlor 20 meq TAB.ER PO SCH ×2 (09:46→20:50)
[2021-03-15 05:48] LABS: Calcium 8.7 mg/dL (8.6-10.3); Magnesium 2.1 mg/dL (1.9-2.7); Potassium 3.8 mmol/L (3.5-5.0)
[2021-03-15 07:47] VITALS: BP 122/63
[2021-03-15] MEDS: Multivitamins/Minerals TAB PO SCH (08:38)
[2021-03-15] MEDS: Potassium Chlor 20 meq TAB.ER PO SCH (08:43)
== END 2021-03-15 11:34 | DRG 291 ==
LOC: ED 10:44 → ICU 13:39 → MEDTELE 03-10 16:37
PROVIDERS: ADMIT Internal Medicine; ATTEND Internal Medicine

== ENCOUNTER 2021-04-22 21:02 | Observation (INO) ==
[2021-04-22 21:45] LABS: Urine Appearance Turbid; Urine Bilirubin Negative (Negative); Urine Blood 2+ (Negative); Urine Color Yellow; Urine Glucose Negative (Negative); Urine Ketones Negative (Negative); Urine Nitrite Negative (Negative); Urine Protein 2+(100 mg/dL) (Negative); Urine Specific Gravity 1.006 (1.002-1.030); Urine Urobilinogen Negative (Negative)
[2021-04-22 22:05] LABS: Urine Bacteria Absent (Absent); Urine Red Blood Cell 2+(6-10/hpf) (Absent); Urine White Blood Cell 3+(>20/hpf) (Absent)
[2021-04-22] MEDS ORDERED: NS 0.9% 1000 ml BAG 1,000 ML IV ONE (23:55)
[2021-04-22] MEDS ORDERED: cefTRIAXone 1 gm/50 mL NS BAG 1 GM/50 ML BAG IV ONE (23:55)
[2021-04-23 00:39] LABS: ABS Lymphocytes 0.3 10^3/ul (1.0-4.8); ABS Monocytes 0.8 10^3/ul (0-0.8); ABS Neutrophils 15.3 10^3/ul (1.5-7.7); Hematocrit 34 % (42-52); Hemoglobin 10.7 g/dL (14.0-18.0); Lymphocyte % 1.8 %; Mean Corpuscular HGB Conc 32 g/dL (31-36); Mean Corpuscular Hemoglobin 27 pg (27-31); Mean Corpuscular Volume 83 fL (80-94); Mean Platelet Volume 7.4 fL (7.4-10.4); Platelet Count 281 10^3/uL (150-450); Red Blood Count 4.03 10^6 /uL (4.18-5.48); Red Cell Distribution Width 22 % (10-15); White Blood Count 16.4 10^3/uL (3.5-10.8)
[2021-04-23 01:09] LABS: Albumin 3.3 g/dL (3.2-5.2); Albumin/Globulin Ratio 1.3 (1-3); C Reactive Protein 59.74 mg/L (<8.01); Calcium 8.6 mg/dL (8.6-10.3); EGFR African American 48.2 (>60); EGFR Non-African American 39.8 (>60); Globulin 2.6 g/dL (2-4); Potassium 4.2 mmol/L (3.5-5.0); Total Protein 5.9 g/dL (6.4-8.9)
[2021-04-23 02:13] LABS: Magnesium 1.6 mg/dL (1.9-2.7)
[2021-04-23] MEDS ORDERED: Dextran 70/Hypromellose Tears Eye Drops 15 ml BTL (for Artificials Tears) BOTH EYES PRN (02:15)
[2021-04-23] MEDS ORDERED: Magnesium Sulfate IV 3 GM in NS 0.9% 100 ml BAG 100 ML IVPB ONE (02:20)
[2021-04-23 02:33] LABS: Ferritin 65.5 ng/mL (24-336)
[2021-04-23] MEDS: Potassium Chlor 20 meq TAB.ER PO SCH ×2 (08:48→22:45)
[2021-04-23 15:15] LABS: ABS Lymphocytes 0.4 10^3/ul (1.0-4.8); ABS Monocytes 0.9 10^3/ul (0-0.8); ABS Neutrophils 11.7 10^3/ul (1.5-7.7); Eosinophil % 0.1 %; Hematocrit 32 % (42-52); Hemoglobin 10.1 g/dL (14.0-18.0); Lymphocyte % 2.9 %; Mean Corpuscular HGB Conc 32 g/dL (31-36); Mean Corpuscular Hemoglobin 27 pg (27-31); Mean Corpuscular Volume 85 fL (80-94); Mean Platelet Volume 7.4 fL (7.4-10.4); Platelet Count 249 10^3/uL (150-450); Red Blood Count 3.75 10^6 /uL (4.18-5.48); Red Cell Distribution Width 22 % (10-15)
[2021-04-23 15:49] LABS: Calcium 8.5 mg/dL (8.6-10.3); EGFR African American 56.9 (>60)
[2021-04-23] MEDS: cefTRIAXone 1 gm/50 mL NS BAG 1 GM/50 ML BAG IVPB SCH (22:47)
[2021-04-24 06:14] LABS: ABS Eosinophils 0.1 10^3/ul (0-0.6); ABS Lymphocytes 0.5 10^3/ul (1.0-4.8); ABS Monocytes 0.9 10^3/ul (0-0.8); ABS Neutrophils 10.3 10^3/ul (1.5-7.7); Eosinophil % 0.5 %; Hematocrit 29 % (42-52); Hemoglobin 9.5 g/dL (14.0-18.0); Lymphocyte % 3.9 %; Mean Corpuscular HGB Conc 33 g/dL (31-36); Mean Corpuscular Hemoglobin 27 pg (27-31); Mean Corpuscular Volume 84 fL (80-94); Mean Platelet Volume 7.7 fL (7.4-10.4); Platelet Count 229 10^3/uL (150-450); Red Cell Distribution Width 21 % (10-15); White Blood Count 11.7 10^3/uL (3.5-10.8)
[2021-04-24 06:22] LABS: Calcium 8.3 mg/dL (8.6-10.3); EGFR African American 72.4 (>60); EGFR Non-African American 59.8 (>60); Magnesium 2.1 mg/dL (1.9-2.7); Potassium 4.3 mmol/L (3.5-5.0)
[2021-04-24] MEDS: Potassium Chlor 20 meq TAB.ER PO SCH ×2 (09:11→21:08)
[2021-04-24] MEDS: Polyethylene Glycol 3350 17 GM PACKET PO SCH (11:30)
[2021-04-24] MEDS: cefTRIAXone 1 gm/50 mL NS BAG 1 GM/50 ML BAG IVPB SCH (21:08)
[2021-04-25 05:56] LABS: ABS Eosinophils 0.2 10^3/ul (0-0.6); ABS Lymphocytes 0.5 10^3/ul (1.0-4.8); ABS Monocytes 0.9 10^3/ul (0-0.8); ABS Neutrophils 8.4 10^3/ul (1.5-7.7); Eosinophil % 1.6 %; Hematocrit 32 % (42-52); Hemoglobin 10.3 g/dL (14.0-18.0); Lymphocyte % 4.8 %; Mean Corpuscular HGB Conc 33 g/dL (31-36); Mean Corpuscular Hemoglobin 27 pg (27-31); Mean Corpuscular Volume 84 fL (80-94); Mean Platelet Volume 7.7 fL (7.4-10.4); Platelet Count 228 10^3/uL (150-450); Red Blood Count 3.79 10^6 /uL (4.18-5.48); Red Cell Distribution Width 22 % (10-15)
[2021-04-25 06:16] LABS: Calcium 8.5 mg/dL (8.6-10.3); EGFR African American 69.6 (>60); EGFR Non-African American 57.5 (>60); Potassium 4.4 mmol/L (3.5-5.0)
[2021-04-25] MEDS: Potassium Chlor 20 meq TAB.ER PO SCH ×2 (09:54→20:04)
[2021-04-25] MEDS: Polyethylene Glycol 3350 17 GM PACKET PO SCH (09:55)
[2021-04-25] MEDS ORDERED: COVID-19 VACCINE, AD26(JANSSEN)/PF 0.5 ML IM ONE (16:00)
[2021-04-25] MEDS: cefTRIAXone 1 gm/50 mL NS BAG 1 GM/50 ML BAG IVPB SCH (20:04)
[2021-04-26 06:55] LABS: ABS Eosinophils 0.2 10^3/ul (0-0.6); ABS Lymphocytes 0.6 10^3/ul (1.0-4.8); ABS Monocytes 0.9 10^3/ul (0-0.8); ABS Neutrophils 7.6 10^3/ul (1.5-7.7); Eosinophil % 2.4 %; Hematocrit 30 % (42-52); Hemoglobin 9.9 g/dL (14.0-18.0); Lymphocyte % 6.3 %; Mean Corpuscular HGB Conc 32 g/dL (31-36); Mean Corpuscular Hemoglobin 27 pg (27-31); Mean Corpuscular Volume 84 fL (80-94); Mean Platelet Volume 7.9 fL (7.4-10.4); Platelet Count 235 10^3/uL (150-450); Red Blood Count 3.63 10^6 /uL (4.18-5.48); Red Cell Distribution Width 22 % (10-15); White Blood Count 9.4 10^3/uL (3.5-10.8)
[2021-04-26 07:09] LABS: Calcium 8.3 mg/dL (8.6-10.3); EGFR African American 79.5 (>60); EGFR Non-African American 65.7 (>60); Magnesium 1.9 mg/dL (1.9-2.7); Potassium 4.5 mmol/L (3.5-5.0)
[2021-04-26 09:21] VITALS: BP 129/78
[2021-04-26] MEDS: Potassium Chlor 20 meq TAB.ER PO SCH (09:31)
[2021-04-26] MEDS: Polyethylene Glycol 3350 17 GM PACKET PO SCH (09:33)
== END 2021-04-26 11:38 | disposition home or self-care (01) ==
LOC: ED 21:02 → MEDTELE 21:02
PROVIDERS: ADMIT Internal Medicine; ATTEND Internal Medicine